=== PATIENT | female | born 1995 | race Hispanic/Latino ===

== ENCOUNTER 2020-03-17 09:02 | Emergency (ER) | payer OTHER ==
[~2020-03-17] VITALS: Ht 167.6 cm; Wt 90.7 kg
[2020-03-17 09:15] VITALS: BP 137/84
[2020-03-17 09:19] VITALS: BP 137/84
--- NOTE | 2020-03-17 09:21 | NUR ---
ARRIVAL PATIENT ARRIVED TO [facility] AMBULATORY, C/O OF BILATERAL KNEE PAIN FOR THE PAST 2 WEEKS, PAIN STARTED AFTER RUNNING ON THE TRACK TWO WEEKS AGO, IT CONTINUES TODAY, HAS ATTEMPTED TO TAKE OVER THE COUNTER MEDICATIONS WITH MINIMAL RESULTS. CAME TO THE ED FOR EVAL BY THE EDP. DENIES ANY INJURIES.
--- NOTE | 2020-03-17 09:24 | ER.PDOC ---
General Chief Complaint: Extremities Stated Complaint: L/R KNEE PAIN TRAVEL OUT OF US: No Time seen by MD: 09:22 Source: patient Exam Limitations: no limitations History of Present Illness Timing/Duration: 1 week Severity: mild Modifying Factors: improves with immobilization, improves with movement Associated Symptoms: denies symptoms Allergies: Coded Allergies: No Known Allergies (Unverified , 03/17/20) Past Medical History Medical History: no pertinent history Surgical History: appendectomy Family History Significant Family History: no pertinent family hx Social History Alcohol Use: none Drug Use: none Reviewed Nursing Reviewed: Vital Signs, Abn. 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 NML as Tested Skin: Normal Color Lymphatic: No Adenopathy Results/Orders Results/Orders Orders - ZANE DEMPSEY MD Xr Knee Rt 3v (03/17/20 09:18) Xr Knee Lt 3v (03/17/20 09:18) Vital Signs Date Time Temp Pulse Resp B/P (MAP) Pulse Ox O2 Delivery O2 Flow Rate FiO2 03/17/20 09:19 98.8 91 16 137/84 (101) 100 Room Air 03/17/20 09:15 98.8 91 16 137/84 (101) 100 Room Air 03/17/20 09:15 98.8 91 16 03/17/20 09:15 98.8 91 16 100 Departure Time of Disposition: 10:00 Disposition: 01 HOME, SELF-CARE Impression: Primary Impression: Arthralgia of both knees Condition: Stable (ERASED) Referrals: PCP,UNKNOWN (PCP) PRIMARY CARE PROVIDER Duration or Time Spent with Pa: 12M ZANE DEMPSEY MD Mar 17, 2020 09:24
[2020-03-17 09:59] VITALS: BP 137/84
--- NOTE | 2020-03-17 10:11 | DIREP ---
PROCEDURE:XRAY KNEE 3 VIEWS-RT COMPARISON:None. INDICATIONS:KNEE PAIN FINDINGS: BONES:Normal. JOINTS:Normal. SOFT TISSUES:Normal. OTHER:No additional findings. CONCLUSION:Normal examination. Dictated by: Minor Casanova Jr. on 03/17/2020 at 10:09 AM
--- NOTE | 2020-03-17 10:11 | DIREP ---
PROCEDURE:XRAY KNEE 3 VIEWS-LT COMPARISON:None. INDICATIONS:KNEE PAIN FINDINGS: BONES:Normal. JOINTS:Normal. SOFT TISSUES:Normal. OTHER:No additional findings. CONCLUSION:Normal examination. Dictated by: Minor Casanova Jr. on 03/17/2020 at 10:09 AM
== END 2020-03-17 10:00 | disposition home or self-care (01) ==
LOC: ER 09:02
DX: M25.561 Pain in right knee (principal); M25.562 Pain in left knee; Z90.49 Acquired absence of other specified parts of digestive tract
CPT/HCPCS: 99283; 73562-LT; 73562-RT